=== PATIENT | female | born 1990 | race Caucasian/White ===

== ENCOUNTER 2016-10-25 19:03 | Emergency (ER) | payer OTHER ==
[2016-10-25 19:47] VITALS: BP 110/68; PULSE 68; TEMP 98; BMI 28.9
--- NOTE | 2016-10-25 19:54 | PDOC ---
History of Present Illness <Tami Wisdom - Last Filed: 10/25/16 22:29> <Emma De Leon - Last Filed: 10/26/16 17:19> - General Chief Complaint: Chest Pain Stated Complaint: CHEST PAINS Time Seen by Provider: 10/25/16 19:46 - History of Present Illness Initial Comments: 10/25/16 20:09 Patient is a 25 year old female with significant medical hx of palpitations who is presenting to the ED via EMS with an episode of chest pain and dizziness that occurred a few hours prior to arrival. The patient reports she was at home on the couch when she had a sudden onset of sharp chest pain at 6:40 PM. Her pain was centralized and non-radiating; she reports that it only lasted for ten minutes. The patient became concerned when she had some blurry vision and dizziness with her chest pain and decided to call EMS to bring her to the ED. Denies shortness of breath, history of blood clots, and oral contraceptives use. Patient notes she was diagnosed with palpitations back in 2011. She received an echocardiogram and a stress test that were WNL. Denies chronic medications, past surgeries, or known allergies. P2 (Tami Wisdom) Past History <Tami Wisdom - Last Filed: 10/25/16 22:29> - Past Medical History Anemia: No Asthma: No Cancer: No Cardiac Disorders: Yes (PALPITATIONS) CVA: No COPD: No CHF: No Dementia: No Diabetes: No GI Disorders: No Disorders: No HTN: No Hypercholesterolemia: No Liver Disease: No Suicide Attempt (Hx): No Seizures: No Thyroid Disease: No - Immunization History Immunization Up to Date: Yes - Psycho/Social/Smoking Cessation Hx Anxiety: No Suicidal Ideation: No Smoking Status: No Smoking History: Never smoked Have you smoked in the past 12 months: No Number of Cigarettes Smoked Daily: 0 Information on smoking cessation initiated: No Hx Alcohol Use: No Drug/Substance Use Hx: No Substance Use Type: None <Emma De Leon - Last Filed: 10/26/16 17:19> - Past Medical History Allergies/Adverse Reactions: Allergies Allergy/AdvReac Type Severity Reaction Status Date / Time No Known Drug Allergies Allergy Verified 10/25/16 19:47 Cardiac Specific PMH - Complaint Specific PMHX Pacemaker: No <Emma De Leon - Last Filed: 10/26/16 17:19> Review of Systems <Tami Wisdom - Last Filed: 10/25/16 22:29> <MoisesEmma Magaly - Last Filed: 10/26/16 17:19> - Review of Systems Comments:: 10/25/16 20:09 CONSTITUTIONAL: Absent: fever, chills, diaphoresis, generalized weakness, malaise, loss of appetite HEENT: Present: blurry vision Absent: rhinorrhea, nasal congestion, throat pain, throat swelling, difficulty swallowing, mouth swelling, ear pain, eye pain CARDIOVASCULAR: Present: chest pain Absent: syncope, palpitations, irregular heart rate, lightheadedness, peripheral edema RESPIRATORY: Absent: cough, shortness of breath, dyspnea with exertion, orthopnea, wheezing, stridor, hemoptysis GASTROINTESTINAL: Absent: abdominal pain, abdominal distension, nausea, vomiting, diarrhea, constipation, melena, hematochezia GENITOURINARY: Absent: dysuria, frequency, urgency, hesitancy, hematuria, flank pain, genital pain MUSCULOSKELETAL: Absent: myalgia, arthralgia, joint swelling SKIN: Absent: rash, itching, pallor HEMATOLOGIC/IMMUNOLOGIC: Absent: easy bleeding, easy bruising, lymphadenopathy, frequent infections ENDOCRINE: Absent: unexplained weight gain, unexplained weight loss, heat intolerance, cold intolerance NEUROLOGIC: Present: dizziness Absent: headache, focal weakness or paresthesia, unsteady gait, seizure, mental status changes, bladder or bowel incontinence. PSYCHIATRIC: Absent: anxiety, depression, suicidal or homicidal ideation, hallucinations (AlyxTami) *Physical Exam <Tami Wisdom - Last Filed: 10/25/16 22:29> <MoisesBriancristo Howeh - Last Filed: 10/26/16 17:19> - Vital Signs Last Vital Signs Temp Pulse Resp BP Pulse Ox 98.0 F 68 16 110/68 100 10/25/16 19:43 10/25/16 19:46 10/25/16 19:46 10/25/16 19:46 10/25/16 19:46 - Physical Exam Comments: 10/25/16 20:09 GENERAL: Well developed, well nourished. Awake and alert. No acute distress. HEENT: Normocephalic, atraumatic. PERRLA, EOMI. No conjunctival pallor. Sclera are non- icteric. Moist mucous membranes. Oropharynx is clear. NECK: Supple. Full ROM. No JVD. Carotid pulses 2+ and symmetric, without bruits. No thyromegaly. No lymphadenopathy. CARDIOVASCULAR: Regular rate and rhythm. No murmurs, rubs, or gallops. Distal pulses are 2+ and symmetric. PULMONARY: No evidence of respiratory distress. Lungs clear to auscultation bilaterally. No wheezing, rales or rhonchi. ABDOMINAL: Soft. Non-tender. Non-distended. No rebound or guarding. No organomegaly. Normoactive bowel sounds. MUSCULOSKELETAL: Normal range of motion at all joints. No bony deformities or tenderness. No CVA tenderness. EXTREMITIES: No cyanosis. No clubbing. No edema. No calf tenderness. SKIN: Warm and dry. Normal capillary refill. No rashes. No jaundice. NEUROLOGICAL: Alert, awake, appropriate. Cranial nerves 2-12 intact. Normal speech. Gait is normal without ataxia. PSYCHIATRIC: Cooperative. Good eye contact. Appropriate mood and affect. (Tami Wisdom) Heart Score/ECG Review <Tami Wisdom - Last Filed: 10/25/16 22:29> <Emma De Leon - Last Filed: 10/26/16 17:19> #1 10/25/16 21:05 Normal sinus rhythm at 83 bpm with sinus arrhythmia Normal ECG (Tami Wisdom) ED Treatment Course - LABORATORY CBC & Chemistry Diagram: 10/25/16 20:07 10/25/16 20:07 <Tami Wisdom - Last Filed: 10/25/16 22:29> - LABORATORY CBC & Chemistry Diagram: 10/25/16 20:07 10/25/16 20:07 <Emma De Leon - Last Filed: 10/26/16 17:19> - ADDITIONAL ORDERS Additional order review: 10/25/16 20:07 RBC 4.67 MCV 86.9 MCHC 32.8 RDW 13.9 D MPV 8.9 D Neutrophils % 47.9 D Lymphocytes % 42.3 H D Monocytes % 8.7 Eosinophils % 0.8 D Basophils % 0.3 - RADIOLOGY Radiology Studies Ordered: Category Date Time Status CHEST X-RAY PORTABLE* [RAD] Stat Radiology 10/25/16 21:31 Completed Radiograph Interpretation: 10/25/16 22:30 Chest X-Ray Impression: No significant interval change or acute lung disease is present. Reported By: Pranav Arellano MD (Tami Wisdom) Medical Decision Making <Tami Wisdom - Last Filed: 10/25/16 22:29> <Emma De Leon - Last Filed: 10/26/16 17:19> - Medical Decision Making 10/26/16 02:08 25 yo female BIBA fro transient episode of palpations associated with dizziness. Lasted 5-10 minutes- -she has had these episodes before and had an ECHO and holter monitor down previously -=ekg was NSR with no significant abnormalities -first trop negative. Pt then wanted to leave w/o repeat cardiac enzymes and left AMA 10/26/16 17:17 (Emma De Leon) *DC/Admit/Observation/Transfer <Tami Wisdom - Last Filed: 10/25/16 22:29> <Emma De Leon - Last Filed: 10/26/16 17:19> Diagnosis at time of Disposition: Atypical chest pain, Palpitations - Discharge Dispostion Disposition: HOME Condition at time of disposition: Stable - Patient Instructions Printed Discharge Instructions: DI for Palpitations Additional Instructions: follow up with your primary physician - Attestations Scribe Attestion: 10/25/16 20:10 Documentation prepared by Tami Wisdom, acting as healthcare or medical for Emma De Leon MD. (Tami Wisdom)
[2016-10-25 20:20] LABS: BASOPHIL 0.3 % (0-2.0); EOSINOPHIL 0.8 % (0-4.5); MCH 28.5 pg (25.7-33.7); MCHC 32.8 g/dl (32.0-36.0); MEAN CELL VOLUME 86.9 fl (80-96); MEAN PLT VOLUME 8.9 fl (7.5-11.1); NEUTROPHILS 47.9 % (42.8-82.8); PLATELET COUNT 245 K/MM3 (134-434); RDW 13.9 % (11.6-15.6); WHITE BLOOD COUNT 7.2 K/mm3 (4.0-10.0)
[2016-10-25 20:37] LABS: INR 1.04 (0.82-1.09); PROTHROMBIN TIME (PATIENT) 11.5 SEC (9.98-11.88)
[2016-10-25 20:59] LABS: ALBUMIN 3.9 g/dl (3.4-5.0); ANION GAP 8 (8-16); BILIRUBIN,TOTAL 0.5 mg/dL (0.2-1.0); CALCIUM 9.2 mg/dL (8.5-10.1); CO2 27 mmol/L (21-32); CREATININE 0.8 mg/dL (0.55-1.02); GLUCOSE,RANDOM 85 mg/dL (74-106); MAGNESIUM 1.9 mg/dL (1.8-2.4); SGOT/AST 32 U/L (15-37); SGPT/ALT 30 U/L (12-78)
[2016-10-25 21:02] LABS: ALK PHOS 110 U/L (45-117); TROPONIN I < 0.02 ng/ml (0.00-0.05)
== END 2016-10-25 22:48 | disposition home or self-care (01) ==
LOC: JER 19:03
DX: R07.89 Other chest pain (principal); R00.2 Palpitations
CPT/HCPCS: 36415; 71010-TC; 80053; 82550; 82553; 83735; 84484; 84703; 85025; 85610; 99284-25

== ENCOUNTER 2018-07-06 21:16 | Emergency (ER) | payer OTHER ==
[2018-07-06 22:07] VITALS: BP 132/88; PULSE 83; TEMP 97.9; BMI 25.4
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
== END 2018-07-07 | disposition left against medical advice (07) ==
LOC: JER 21:16
DX: S89.81XA Other specified injuries of right lower leg, initial encounter (principal); Y04.8XXA Assault by other bodily force, initial encounter; Y93.89 Activity, other specified; Y92.810 Car as the place of occurrence of the external cause; Y99.8 Other external cause status; Y07.03 Male partner, perpetrator of maltreatment and neglect; Y03.0XXA Assault by being hit or run over by motor vehicle, initial encounter
CPT/HCPCS: 99281-25